=== PATIENT | male | born 1965 | race Caucasian/White ===

== ENCOUNTER 2022-12-14 16:12 | Emergency (ER) | payer OTHER, SELFPAY ==
[2022-12-14 16:18] VITALS: BP 161/96; PULSE 81; RESP 15; O2SAT 98
--- NOTE | 2022-12-14 16:37 | ED.GENADUL_ITS ---
Discharge Plan Disposition Patient Disposition: Home Discharge Details Clinical Impression: Laceration of hand, right, Dog bite of dorsum of hand Primary Care Provider: Jaciel Allan ED Provider: Mary Arellano Home Meds and New Rx's Prescriptions: New amoxicillin-pot clavulanate 875-125 mg tablet 1 tab PO BID 10 Days Qty: 20 0RF Discharge Instructions Instructions: Animal Bite (ED), Laceration (ED) Additional Instructions: Have sutures removed in 7 to 10 days. You may return here for suture removal or urgent care what ever is more convenient for you. Please return for any signs of infection including red streaks, drainage, redness swelling or increased pain. At this time you have declined a tetanus booster. Take the antibiotics twice daily with yogurt or probiotic as directed. Keep the wound clean and dry. No soaking. After 12 to 24 hours you may wash under running soap and water. Please take Tylenol or Ibuprofen with food every 4-6 hours as needed for pain and swelling. Follow up with primary care provider in 3-5 days. Return to ED sooner if any worsening or concerns. Increase oral fluids. Stand Alone Forms: Work Release Referrals: Jaciel Allan MD [Primary Care Provider] - 1 week Discharge Data Discharge Date/Time-TO BE ENTERED AT DEPARTURE: 12/14/22 18:18 Medical Decision Making 57-year-old male presents to the ER with a laceration and dog bite to the right hand. Patient has approximately 3 to 3-1/2 cm linear laceration to the dorsum of his right hand. Bleeding is controlled full range of motion noted. Patient reports that he was at a worksite and was getting out of his vehicle when a dog charged him and bit his hand. The owners were home and they report that he is up-to-date on his tetanus vaccinations. Laceration anesthetized with 1% lidocaine with epi, wound with chlorhexidine and sterile normal saline. Anesthesia achieved patient tolerated well. Four-point 0 Ethilon simple interrupted sutures placed #4. Wound well approximated. Discussed home care and to have sutures removed in approximately 7 days. Di scussed signs of infection. Will give Augmentin 1 dose here and a prescription for Augmentin for 10 days. Patient does not want a tetanus vaccination. I did discuss risks and benefits of this. Patient declined tetanus at this time. Patient was given a dressing by staff respiratory therapist. This text was generated using [employer] dictation system, please disregard any oddities of phrase or misspellings. HPI General Mode of arrival: ambulatory . Date/Time Provider Initiated Documentation: 12/14/22 16:13 . Limitations to Documentation: no limitations . Information obtained by: patient, RN notes reviewed and old records reviewed . HPI Narrative: 57-year-old male presents to the ER with a laceration and dog bite to the right hand. Patient has approximately 3 to 3-1/2 cm linear laceration to the dorsum of his right hand. Bleeding is controlled full range of motion noted. Patient reports that he was at a worksite and was getting out of his vehicle when a dog charged him and bit his hand. The owners were home and they report that he is up-to-date on his tetanus vaccinations. Related Data Home Medications Medication Instructions Recorded Confirmed amoxicillin 875 mg-potassium 1 tab PO BID 10 days #20 tabs 12/14/22 clavulanate 125 mg tablet Previous Rx's Medication Instructions Recorded amoxicillin 875 mg-potassium 1 tab PO BID 10 days #20 tabs 12/14/22 clavulanate 125 mg tablet Allergies Allergy/AdvReac Type Severity Reaction Status Date / Time No Known Allergies Allergy Unverified 05/17/16 12:17 General Stated Complaint: AnimalBite SARAH: 4 Review of Systems All systems reviewed & are unremarkable except as noted in HPI and below Integumentary/Breasts Skin/Breast: Reports wounds (Dog bite right hand) PFSH All Active Problems (Updated 12/14/22 @ 17:49 by Mary Arellano NP) Encounter for colorectal cancer screening (Acute) Laceration of hand, right (Acute) Dog bite of dorsum of hand (Acute) Surgical History (Updated 05/23/16 @ 11:20 by Jessy Villegas) back surgery Colonoscopy - IV Sedation (05/17/16) Social History Smoking/Tobacco Use Status: Current-Occasional Smoking risk assessment performed?: Yes Alcohol Intake: current Alcohol Intake frequency: a few times a month Drug use: Never Do you feel safe at home: Yes Do you feel safe in your relationship?: Yes Exam Const General: cooperative, comfortable, well developed and well groomed Nutritional Appearance: average body habitus Orientation: alert, awake and oriented x3 Extrem Right upper extremity: hand Details: normal capillary refill, neuromotor exam normal, laceration dorsal hand radial aspect mid Details: irregular, puncture, contaminated, involving subcutaneous tissue and with motor nerve function intact; no pulsatile bleeding and not with foreign body present and puncture wound Hand/finger images: 1. Approximately 3 cm laceration, underlying structures intact bleeding controlled. Full range of motion. Irregular borders. 2. Small superficial puncture wound Course Vital Signs Vital signs: Vital Signs Pulse 81 12/14/22 16:18 Respiratory Rate 15 12/14/22 16:18 Blood Pressure 161/96 H 12/14/22 16:18 Pulse Oximetry 98 12/14/22 16:18 Pulse 81 12/14/22 16:18 Respiratory Rate 15 12/14/22 16:18 Blood Pressure 161/96 H 12/14/22 16:18 Blood Pressure Position Sitting 12/14/22 16:18 Pulse Oximetry 98 12/14/22 16:18 Oxygen Delivery Method Room Air 12/14/22 16:18 Oxygen Flow Rate 0 12/14/22 16:18 Pain Level 4 12/14/22 16:18 Procedures Laceration Laceration 1: Site: hand Side (If applicable): right Size (cm): 3 Description: irregular and contaminated Depth: simple, single layer Local Anesthetic: Lidocaine 1% and with Epi Amount of anesthesia used (mL): 3 Pre-repair: wound explored, irrigated extensively and deep structures intact Skin layer closed with: nylon Size (cm): 4-0 Number of sutures: 4 Technique: simple, interrupted and other (Loose simple interrupted sutures placed due to dog bite wound well approximated patient tolerated well)
--- NOTE | 2022-12-14 17:39 | NUR.NOTE ---
[facility] Health Officer in [place], faxed report [phone].Nursing Note:
[2022-12-14] MEDS: Amox. 875/Clav. 125, 2 TABS/BTL 1 TAB PO (19:36)
== END 2022-12-14 18:18 | disposition home or self-care (01) ==
LOC: ER 18:07
PROVIDERS: Emergency Provider Registered Nurse Emergency; PCP Internal Medicine
DX: S61.451A Open bite of right hand, initial encounter (principal); Z23 Encounter for immunization; W54.0XXA Bitten by dog, initial encounter
CPT/HCPCS: 12002; 90471; 99283; 99284

== ENCOUNTER 2022-12-15 10:48 | Emergency (ER) | payer OTHER, SELFPAY ==
[2022-12-15 10:53] VITALS: BP 152/94; PULSE 83; RESP 20; TEMP 36.8; O2SAT 98
--- NOTE | 2022-12-15 11:00 | DI.RAD_ITS ---
Exam(s) XR SHOULDER LT COMPLETE 2+V EXAM: XR SHOULDER LT COMPLETE 2+V CLINICAL HISTORY: pain post. TECHNIQUE: 2D digital imaging was performed of the left shoulder. Five images were obtained. AP, G rashey, Y-view and axillary views were obtained. COMPARISON: No exams were available for comparison FINDINGS: BONES: No acute fracture is present. No bony destructive lesion is seen. JOINTS: No dislocation present. SOFT TISSUE: Normal. IMPRESSION: No acute fracture or dislocation. DATA REPOSITORY: RADIATION DOSE DELIVERED:
--- NOTE | 2022-12-15 11:47 | ED.GENADUL_ITS ---
Discharge Plan Disposition Patient Disposition: Home Discharge Details Clinical Impression: Left shoulder strain, Dog bite of dorsum of hand Primary Care Provider: Jaciel Allan ED Provider: Krystal Cheney Home Meds and New Rx's Prescriptions: Continued amoxicillin-pot clavulanate 875-125 mg tablet 1 tab PO BID 10 Days Qty: 20 0RF Discharge Instructions Instructions: Animal Bite (ED), Shoulder Sprain (ED) Additional Instructions: Follow-up with your primary care physician for reassessment next week Continue to range with decreased use of your left shoulder and right hand, if you continue to use them, they will not have time to heal Follow the previous instructions regarding your wound care on her hand, likely 12 days for suture removal Make sure you take the antibiotic, every 12 hours Elevate the right hand is much as possible and do not submerge in water Use your left shoulder for ranging but do not lift more than 5 pounds Should he have new or worsening complaints including redness, swelling, fever, worsening pain please return to the emergency department for additional assessment Stand Alone Forms: Work Release Referrals: Jaciel Allan MD [Primary Care Provider] - Discharge Data Discharge Date/Time-TO BE ENTERED AT DEPARTURE: 12/15/22 11:59 Medical Decision Making Patient presents for reevaluation secondary to onset of left shoulder pain last evening after previous assessment in the emergency department yesterday Shoulder x-ray per radiology interpretation and my review does not show evidence of acute abnormality No tenderness to left elbow or left wrist Offered sling, patient declined Referred back to primary care physician and restrictions applied Able take ibuprofen and Tylenol as needed for discomfort Redressed patient's wound on his hand and given several additional doses of Augmentin as patient's pharmacy is closed secondary to holiday Return precautions reviewed and patient expressed understanding HPI General Date/Time Provider Initiated Documentation: 12/15/22 11:03 . HPI Narrative: 57-year-old gentleman presents for evaluation of his left shoulder which he injured yesterday but was not evaluated for at that time with a dog bite incident. Denies fever or chills. Denies any additional complaints. States the pain is exacerbated with movement. States that his wound that was sutured yesterday is not bothersome. He is taking antibiotic as prescribed. Related Data Home Medications Medication Instructions Recorded Confirmed amoxicillin 875 mg-potassium 1 tab PO BID 10 days #20 tabs 12/14/22 12/15/22 clavulanate 125 mg tablet Previous Rx's Medication Instructions Recorded amoxicillin 875 mg-potassium 1 tab PO BID 10 days #20 tabs 12/14/22 clavulanate 125 mg tablet Allergies Allergy/AdvReac Type Severity Reaction Status Date / Time No Known Allergies Allergy Unverified 12/15/22 11:01 General Stated Complaint: Orthopedic SARAH: 4 PFSH All Active Problems (Updated 12/15/22 @ 11:52 by BAILEY Thompson) Encounter for colorectal cancer screening (Acute) Laceration of hand, right (Acute) Dog bite of dorsum of hand (Acute) Left shoulder strain (Acute) Surgical History (Updated 05/23/16 @ 11:20 by Jessy Villegas) back surgery Colonoscopy - IV Sedation (05/17/16) Social History Smoking/Tobacco Use Status: Current-Occasional Smoking risk assessment performed?: Yes Alcohol Intake: current Alcohol Intake frequency: a few times a month Drug use: Never Do you feel safe at home: Yes Do you feel safe in your relationship?: Yes Exam Narrative Exam Narrative: Patient appears well, he has tenderness to palpation on his left shoulder with decreased flexion and external rotation as well as abduction Neurovascularly intact, no tenderness to cervical spine, chest wall, or elbow, Reexamined right hand with dorsal laceration, no evidence of secondary cellulitis, no new wound dehiscence or crepitus Course Vital Signs Vital signs: Vital Signs Temperature 36.8 C 12/15/22 10:53 Pulse 83 12/15/22 10:53 Respiratory Rate 20 12/15/22 10:53 Blood Pressure 152/94 H 12/15/22 10:53 Pulse Oximetry 98 12/15/22 10:53 Temperature 36.8 C 12/15/22 10:53 Temperature Source Oral 12/15/22 10:53 Pulse 83 12/15/22 10:53 Respiratory Rate 20 12/15/22 10:53 Respiratory Effort Normal, Non-Labored 12/15/22 11:08 Blood Pressure 152/94 H 12/15/22 10:53 Blood Pressure Position Sitting 12/15/22 10:53 Pulse Oximetry 98 12/15/22 10:53 Pain Level 2 12/15/22 11:08
--- NOTE | 2022-12-15 11:48 | DI.VRAD_ITS ---
PROCEDURE INFORMATION: Exam: XR Left Shoulder Exam date and time: 12/15/2022 11:19 AM Age: 57 years old Clinical indication: Other: Pain TECHNIQUE: Imaging protocol: Radiologic exam of the left shoulder. Views: 2 or more views. COMPARISON: No relevant prior studies available. FINDINGS: Bones/joints: Degenerative changes in the acromioclavicular joint and glenohumeral joint. There is no evidence of acute fracture.There is no evidence of malalignment or dislocation. Soft tissues: Normal. IMPRESSION: There is no evidence of acute fracture.There is no evidence of malalignment or dislocation. Dictated and Authenticated by: Fran Richards MD. Ordering:SIRISHA Rice MD
[2022-12-15] MEDS: Amox. 875/Clav. 125, 2 TABS/BTL 1 TAB PO (11:58)
== END 2022-12-15 11:59 | disposition home or self-care (01) ==
PROVIDERS: Emergency Provider Physician Assistant; PCP Internal Medicine
DX: S61.451A Open bite of right hand, initial encounter (principal); S46.912A Strain of unspecified muscle, fascia and tendon at shoulder and upper arm level, left arm, initial encounter; W54.0XXA Bitten by dog, initial encounter
CPT/HCPCS: 99283; 73030; 99284

== ENCOUNTER 2023-11-27 21:53 | Outpatient (REF) | payer BC, SELFPAY | END 2023-11-27 21:54 | disposition home or self-care (01) | LOC: LBN 21:53 | PROVIDERS: PCP Family Medicine; Visit Provider Physician Assistant Medical | DX: L72.3 Sebaceous cyst (principal) | CPT/HCPCS: 87070; 87205 ==